=== PATIENT | male | born 2000 | race Two or more races ===

== ENCOUNTER 2020-03-30 13:16 | Emergency (ER) | payer MEDICAID, OTHER ==
[~2020-03-30] VITALS: Ht 177.8 cm; Wt 95.2 kg
[2020-03-30] MEDS ORDERED: ACETAMINOPHEN 325MG TABLET PO ONE (13:45)
[2020-03-30] MEDS ORDERED: ONDANSETRON 4MG ODT PO ONE (13:45)
[2020-03-30 16:30] VITALS: BP 138/78
== END 2020-03-30 16:34 | disposition home or self-care (01) ==
LOC: ER 13:16
DX: U07.1 COVID-19 (principal); R51 Headache
CPT/HCPCS: 71045; 93005; 99285; C9803; Q0162; U0003